=== PATIENT | male | born 1990 | race Caucasian/White ===

== ENCOUNTER 2023-01-02 22:01 | Inpatient (IN) | payer OTHER, SELFPAY ==
[2023-01-02 22:19] VITALS: BP 129/86; PULSE 105
--- NOTE | 2023-01-03 00:30 | PC.ADMIT ---
PT is a 32 year old male admitted to [facility] on CV from [place] ED due to SI with plan and intent to OD on medications due to recent Hepatitis C dx. PT has Bipolar 1 disorder and PTSD. PT has hx of multiple inpatient admissions and suicide attempts. Past medical history of HTN, anxiety, depression, seizures, and ADHD. PT currently on 15 minute safety checks and is resting in bed with eyes closed.
[2023-01-03 06:00] VITALS: BP 125/79; PULSE 76; RESP 14; TEMP 36.9; O2SAT 94
--- NOTE | 2023-01-03 12:49 | HO.PM.IMCN ---
History of Present Illness Data of Consult Service Date: 01/03/23 Requesting physician: Hossein Lucio Primary Care Provider: Unknown Physician HPI Reason for consult: medical H&P 32 year old male with history hypertension, recently diagnosed hepatitis C, hx seizures r/t to wellbutrin use, history alcohol abuse in remission, opioid dependence on suboxone with hx IVDA, and bipolar disorder admitted to psychiatry with consult placed to hospital medicine for medical H&P. The patient was recently diagnosed with hepatitis C, used to share needles for IVDU, and has not yet been treated for this. He denies ongoing use. No recent etoh use in 2 years per patient. Continues smoking 1PPD cigarettes with 10 pack year history. Has no other complaints. Review of Systems Review of Systems: General: No fevers, malaise, unintentional weight loss HEENT: No blurred vision, diplopia. No sore throat, nasal congestion, rhinorrhea, sinus pain, ear pain Cardiovascular: No chest pain, palpitations, or leg edema Respiratory: No shortness of breath, wheezing, cough GI: No abdominal pain, nausea, vomiting, diarrhea, constipation, melena, hematochezia : No dysuria, hematuria, increased urinary frequency, decreased urinary output MSK: No myalgia, back pain Neuro: No headaches, weakness, paresthesias Skin: No rashes or lesions PMFSH Medical History (Updated 01/03/23 @ 13:21 by SHARON Torres) Anxiety Bipolar disorder Cigarette smoker Hepatitis C History of alcohol abuse History of intravenous drug abuse History of seizure Opioid dependence on agonist therapy Social History Household Members: Other Household Members Other:: homeless Housing: Homeless Do you presently have visiting nurse or other home services: No Patient Tobacco Use Status: Current everyday Tobacco user Tobacco use type: Cigarette Use of substances other than those prescribed or required for medical reasons: Yes Substance Use Type: Amphetamines Substance Use Type Other:: suboxone Substance Use Frequency: Daily Last Used Substance: Unknown Currently Displaying Signs/Symptoms of Drug Intoxication Withdrawal: No Any prior treatment program specific to substance use: No Have you been hit, kicked, punched, or otherwise hurt by someone within the past year? If so, by whom?: No Spiritual Healthcare Practices: unknown Confucianism Healthcare Practices: unknown Cultural Healthcare Practices: unknown Advance Directives: No Advance Directives Information Provided: No Do you have thoughts of harming others: None Do you have a plan to hurt others: No Plan Recently lost weight without trying: Unsure How much weight loss: Unsure Meds Allergies Allergy/AdvReac Type Severity Reaction Status Date / Time No Known Allergies Allergy Verified 01/02/23 22:57 Active Medications: Current Medications Acetaminophen (Acetaminophen 325 Mg Tablet) 650 mg PO Q6H PRN PRN Reason: Headache/Pain Mild Scale (1-3) Al Hydroxide/Mg Hydroxide (Magnesium Hydrox/Alum Hydrox 30 Ml Oral.Susp) 30 ml PO Q6H PRN PRN Reason: Heartburn/Nausea Hydroxyzine HCl (Hydroxyzine Hcl 25 Mg Tablet) 25 mg PO Q6H PRN PRN Reason: Anxiety Magnesium Hydroxide (Milk Of Magnesia 30 Ml Oral.Susp) 30 ml PO DAILY PRN PRN Reason: Constipation Trazodone HCl (Trazodone Hcl 50 Mg Tablet) 50 mg PO BEDTIME MRX1 PRN PRN Reason: Insomnia Physical Exam Vital Signs and Narrative: Vital Signs: Last Vital Signs Temp 98.4 F 01/03/23 06:00 Pulse 76 01/03/23 06:00 Resp 14 01/03/23 06:00 BP 125/79 01/03/23 06:00 Pulse Ox 94 01/03/23 06:00 O2 Del Method Room Air 01/03/23 06:00 Constitutional - Awake and Alert, No apparent distress Eyes - PERRLA, EOMI Cardiovascular - S1S2, RRR, No edema Respiratory - Normal lung expansion, Normal respiratory effort, No respiratory distress, CTA bilaterally Gastrointestinal - NT / ND; +BS; No rebound or guarding Extremities - no calf tenderness bilaterally, no swelling Musculoskeletal - Normal inspection, normal ROM Skin - Warm/Dry Neurological - Alert & oriented x3, CN II-XII in tact, 5/5 strength BUE and BLE Psychological - depressed mood, disheveled appearing Assessment and Plan (1) Routine medical exam: Status: Acute Plan 32 year old male with history hypertension, recently diagnosed hepatitis C, hx seizures r/t to wellbutrin use, history alcohol abuse in remission, opioid dependence on suboxone with hx IVDA, and bipolar disorder admitted to psychiatry with consult placed to hospital medicine for medical H&P. #Bipolar disorder w/ SI -plan per psychiatry #Hepatitis C -recently diagnosed r/t IVDA -Needs to be set up with outpt GI for treatment- agreeable to treatment #Opioid dependence -denies recent illicit use -continue suboxone #HTN -continue lisinopril and clonidine -monitor BPs #Nicotine dependence -10 pack year history. Smokes 1ppd -Nicotine patch 21mg prn for NRT -Cessation counseling provided Thank you for allowing me to participate in this consult. Signing off at this time. Please do not hesitate to call for further questions. Time Spent With Patient Time: Total time managing care of this patient today ____ minutes.
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
[2023-01-03] MEDS: Gabapentin 300 MG CAPSULE PO ×2 (14:12→20:27)
[2023-01-03 20:25] VITALS: BP 147/92; PULSE 94; RESP 14; TEMP 37.2
[2023-01-03] MEDS: Prazosin HCL 1 MG CAPSULE 2 MG PO (20:25)
[2023-01-03] MEDS: Divalproex Sodium ER 500 MG TAB.ER.24H PO (20:25)
[2023-01-03] MEDS: Cyproheptadine HCl 4 MG TABLET 2 MG PO (20:26)
--- NOTE | 2023-01-04 | ECG_ITS ---
Test Reason : QTC PROLONGATION Blood Pressure : / mmHG Vent. Rate : 074 BPM Atrial Rate : 074 BPM P-R Int : 140 ms QRS Dur : 098 ms QT Int : 388 ms P-R-T Axes : 024 045 051 degrees QTc Int : 430 ms Normal sinus rhythm Normal ECG No previous ECGs available Referred By: Hossein Lucio Electronically Signed By:Julius Mora
[2023-01-04 08:24] VITALS: BP 155/90; PULSE 72; RESP 15; TEMP 36.2; O2SAT 96
[2023-01-04] MEDS: Venlafaxine HCl ER 150 MG CAP.ER.24H PO (08:33)
[2023-01-04] MEDS: ARIPiprazole 10 MG TABLET PO (08:33)
[2023-01-04] MEDS: Gabapentin 300 MG CAPSULE PO (08:33)
[2023-01-04 08:50] LABS: MANUAL DIFF FLAG NO
[2023-01-04 08:53] LABS: Basophils Percent Auto 0.5 % (0-2); Eosinophils Absolute Auto 0.2 X10*3/uL (0.0-0.4); Eosinophils Percent Auto 3.3 % (0-4); Hematocrit 49.7 % (42.0-52.0); Hemoglobin 17.5 g/dl (14.0-18.0); Imm Gran Abs Auto 0.02 X10*3/uL (0.00-0.03); Imm Gran Pct Auto 0.4 % (0.0-0.4); Lymphocytes Absolute Auto 2.8 X10*3/uL (1.2-4.9); Lymphocytes Percent Auto 49.2 % (20-40); Mean Corpuscular HGB Conc 35.2 g/dl (31.0-36.0); Mean Corpuscular Hemoglobin 32.1 pg (27.0-33.0); Mean Platelet Volume 11.3 fL (9.4-12.4); Monocytes Absolute Auto 0.5 X10*3/uL (0.1-1.2); Monocytes Percent Auto 7.9 % (2-11); Neutrophils Absolute Auto 2.2 x10*3/uL (2.0-8.3); Neutrophils Percent Auto 38.7 % (45-73); Platelet Count 194 X10*3/uL (160-400); Red Blood Count 5.46 X10*6/uL (4.60-5.80); Red Cell Distribution Width 13.1 % (11.0-16.0); White Blood Count 5.7 X10*3/uL (4.8-10.8)
--- NOTE | 2023-01-04 10:08 | P.PNPSI_ITS ---
Subjective Subjective Date of Service: 01/04/23 Reason For Visit: Bipolar I D/O Current etc Interim History: Met with patient; discussed in team; reviewed covering provider notes Patient denies any history of AVH; denies any history of manic episodes or behaviors. Rather patient endorses long history of depression anxiety and PTSD symptoms from trauma Patient reports sustained sobriety for the past 2 and half years Patient reports he has been homeless and thus is unable to maintain an outpatient provider; thus when decompensates or runs out of medications and up in the hospital. He says he was at [facility] the end of last year, then [facility] in October and then [facility] few weeks ago. Patient reports that his depression has never been well treated but at [facility] he got on Vyvanse and Ativan which he found helpful; however it was not continued at last hospitalization. Patient says that typically he will be doing well enough for few weeks and then something will happen such as an upsetting interactions that well immediately trigger a downward spiral and his mood and turn into of suicidal ideation. Regarding family history patient's mother has a history of bipolar disorder; father has been on lithium Reviewed medications and patient does not think Abilify is helpful. However he thinks Depakote has been helpful and would like to get back to 1250 mg. Invega recently started and he thinks that to might be helping but he is not sure. Patient would like to get back on gabapentin 800 mg t.i.d.. Discussed lithium which he is anxious about since his father was on in the past. Patient agrees to trying to utilize gabapentin and p.r.n. for anxiety instead of getting back on Ativan 0.5 which she was taking t.i.d.; he feels that if Ativan 0.5 mg once day p.r.n. is available for panic and that will be sufficient. He has also had Ambien in the past for sleep however will try to use Seroquel; production underwriter reviewed risks/side effects and he prefers Seroquel over trazodone since trazodone causes a sleep hangover. Mental Status Exam Mental Status Exam Narrative: Pt is alert and oriented; behavior is cooperative and calm; patient is not in distress; disheveled dressed in casual attire with unkempt hair and poor hygiene; mood is described as depressed and affect congruent, a little blunted; eye contact appropriate; Speech is normal rate, volume and prosody and not pressured; some psychomotor retardation present; thought process is organ ized and goal directed; Thought content is on feeling helpless; also on tx; otherwise pertinent to relevant topics and without any delusional content, paranoid ideations or grandiosity; intermittent SI; no HI. There is no evidence of perceptual disturbance and denies AVH. Patients insight and judgment are impaired Diagnostics Vital Signs (24Hr): Vital Signs - 24 hr 01/03/23 20:25 01/04/23 08:24 Temperature 99 F 97.2 F Pulse Rate 94 72 Respiratory Rate 14 15 Blood Pressure 147/92 H 155/90 H Pulse Oximetry 96 Oxygen Delivery Method Room Air Labs 01/04/23 08:03 Labs: Laboratory Results - last 48 hr 01/04/23 08:03 WBC 5.7 RBC 5.46 Hgb 17.5 Hct 49.7 MCV 91.0 MCH 32.1 MCHC 35.2 RDW 13.1 Plt Count 194 MPV 11.3 Immature Gran % (Auto) 0.4 Neut % (Auto) 38.7 L Lymph % (Auto) 49.2 H [place] % (Auto) 7.9 Eos % (Auto) 3.3 Baso % (Auto) 0.5 Lymph # (Auto) 2.8 [place] # (Auto) 0.5 Eos # (Auto) 0.2 Baso # (Auto) 0.0 Abs Immat Gran (auto) 0.02 Absolute Neuts (auto) 2.2 Absolute Nucleated RBC 0.000 Nucleated RBC % (auto) 0.0 Medications Medications Current Medications Acetaminophen (Acetaminophen 325 Mg Tablet) 650 mg PO Q6H PRN PRN Reason: Headache/Pain Mild Scale (1-3) Al Hydroxide/Mg Hydroxide (Magnesium Hydrox/Alum Hydrox 30 Ml Oral.Susp) 30 ml PO Q6H PRN PRN Reason: Heartburn/Nausea Aripiprazole (Aripiprazole 10 Mg Tablet) 10 mg PO DAILY [facility] Last Admin: 01/04/23 08:33 Dose: 10 mg Clonidine HCl (Clonidine Hcl 0.1 Mg Tablet) 0.1 mg PO TID PRN; Protocol PRN Reason: anxiety Cyproheptadine HCl (Cyproheptadine Hcl 4 Mg Tablet) 2 mg PO BEDTIME [facility] Last Admin: 01/03/23 20:26 Dose: 2 mg Divalproex Sodium (Divalproex Sodium Er 500 Mg Tab.Er.24h) 500 mg PO BEDTIME ORLY Last Admin: 01/03/23 20:25 Dose: 500 mg Gabapentin (Gabapentin 300 Mg Capsule) 300 mg PO TID ORLY Last Admin: 01/04/23 08:33 Dose: 300 mg Hydroxyzine HCl (Hydroxyzine Hcl 25 Mg Tablet) 25 mg PO Q6H PRN PRN Reason: Anxiety Magnesium Hydroxide (Milk Of Magnesia 30 Ml Oral.Susp) 30 ml PO DAILY PRN PRN Reason: Constipation Prazosin HCl (Prazosin Hcl 1 Mg Capsule) 2 mg PO BEDTIME ORLY; Protocol Last Admin: 01/03/23 20:25 Dose: 2 mg Trazodone HCl (Trazodone Hcl 50 Mg Tablet) 50 mg PO BEDTIME MRX1 PRN PRN Reason: Insomnia Venlafaxine HCl (Venlafaxine Hcl Er 150 Mg Cap.Er.24h) 150 mg PO DAILY [facility] Last Admin: 01/04/23 08:33 Dose: 150 mg Allergies Allergies Allergy/AdvReac Type Severity Reaction Status Date / Time No Known Allergies Allergy Verified 01/02/23 22:57 Assessment & Plan Assessment & Plan (1) Bipolar disorder: Status: Acute Code(s): F31.9 - Bipolar disorder, unspecified Assessment and Plan: 32 yo with long history of bipolar disorder presentinf for treatment due to SI with plan to overdose; feels safe on unti but very depressed. Plan Patient is a 32 yo male with history of depression, PTSD, alcohol use disorder in sustained remission, hep C, DMH involvement, who presents for SI and the face of psychosocial stressors including homelessness and being estranged from mom and brother. Patient denies any history of AVH or manic type episodes or behaviors; has not had consistent provider since he has been homeless and mostly gets medications from hospitalizations. Hospital course: 4/3 patient feels Depakote is helpful but not Abilify and agrees to discontinue; wants to remain on Effexor for now thinking it might be helpful. Also agrees to trying to use other PRNs instead of Ativan -reviewed labs from sending hospital: UDS negative; no LFTs done Plan: CV Q 15 minute checks Will order CMP, ammonia, Depakote level Increase Depakote ER to 1000 mg q.h.s.; patient used to be on 1250 mg -patient has history of hep C; production underwriter reviewed labs at sending institution and no LFTs done; will order LFTs and Depakote level before increasing further Discontinue Abilify; patient says not helpful and likely used as augmentation; review of past meds also have perphenazine listed which patient says may have been for augmentation as well but he never took it Continue Effexor ER; titrate back to recent home dose of 225 mg Increase gabapentin to 600 mg t.i.d.; patient was getting 800 t.i.d. which he says was for migraines and prescribed by pain management doctor in [place] Will start Adderall ER 10 mg; no Vyvanse available Start Ativan 0.5 mg daily p.r.n. for panic Start Seroquel 50 mg q.h.s. for insomnia (tried to avoid Ambien; trazodone causes sleep hang over) Increase prazosin to 4 mg q.h.s.; was taking 6 mg Will consider restarting lisinopril for blood pressure Continue cyproheptadine however not sure what this is being used for Patient educated on: diagnosis, medication risk/benefits, substance abuse and therapeutic strategies Informed Consent: understands Reason for contiued inpatient stay Substantial Risk for: rapid decompensation Time Spent With Patient Time: Total time managing care of this patient today ____ minutes.
[2023-01-04] MEDS: Buprenorphine/Naloxone 8/2 mg FILM 1 FILM SUBLINGUAL ×2 (14:53→21:15)
[2023-01-04] MEDS: Gabapentin 300 MG CAPSULE 600 MG PO ×2 (14:54→21:05)
[2023-01-04 15:31] LABS: Alanine Aminotransferase 248 U/L (0-40); Alkaline Phosphatase 76 U/L (39-117); Anion Gap 16 (12-20); Aspartate Amino Transferase 275 U/L (5-37); Bilirubin Total 0.9 mg/dL (0.0-1.0); Blood Urea Nitrogen 17 mg/dL (9-16); Calcium 9.5 mg/dL (8.4-10.2); Carbon Dioxide 26 mmol/L (22-29); Chloride 102 mmol/L (96-108); Estimated Glomerular Filt Rate > 60; Glucose Random 120 mg/dL (60-115); Potassium 4.7 mmol/L (3.3-5.1); Sodium 139 mmol/L (135-145); Total Protein 7.3 g/dL (6.5-8.0)
[2023-01-04 15:35] LABS: Ammonia 69 umol/L (13-55)
[2023-01-04 16:37] LABS: Valproate 52.4 mcg/mL (50.0-100.0)
[2023-01-04 18:00] VITALS: BP 159/86; PULSE 68; TEMP 36.1; O2SAT 98
[2023-01-04] MEDS: LORazepam 0.5 MG TABLET PO (19:15)
[2023-01-04] MEDS: Cyproheptadine HCl 4 MG TABLET 2 MG PO (21:03)
[2023-01-04] MEDS: Divalproex Sodium ER 500 MG TAB.ER.24H 1000 MG PO (21:05)
[2023-01-04] MEDS: Prazosin HCL 1 MG CAPSULE 4 MG PO (21:06)
[2023-01-05] MEDS: Gabapentin 300 MG CAPSULE 600 MG PO ×3 (08:36→20:00)
[2023-01-05] MEDS: Dextroamphetamine/Amphetamine XR 10 MG CAP.ER.24H PO (08:36)
[2023-01-05] MEDS: Venlafaxine HCl ER 150 MG CAP.ER.24H PO (08:36)
[2023-01-05] MEDS: Buprenorphine/Naloxone 8/2 mg FILM 1 FILM SUBLINGUAL ×2 (08:37→17:22)
[2023-01-05] MEDS: Nicotine 21 MG PATCH.TD24 TRANSDERMA (08:37)
[2023-01-05 09:03] VITALS: BP 146/81; PULSE 85; RESP 14; TEMP 36.1
[2023-01-05] MEDS: Nicotine Polacrilex 2 MG GUM 4 MG BUCCAL ×2 (13:51→16:10)
--- NOTE | 2023-01-05 14:16 | HO.PSYCHPN ---
Subjective Subjective Date of Service: 01/05/23 Reason For Visit: Bipolar I D/O Current etc Interim History: Met with patient; discussed with team; reviewed labs Patient reports he still feeling depressed with passive SI however he says he is feeling more helpful about treatment getting better. Discussed labs and patient understands elevated liver enzymes and problems with Depakote and agrees to discontinue. Discussed medications and patient says for now he wants to stay off mood stabilizers to see how he does without on just Effexor. Patient said that he was able to sleep last night on his own without trazodone; discussed Cyproheptidine and patient thinks it it may be for help with migraines. Discussed history and patient has limited substance abuse history, saying he has experimented in the past but has never really abused anything consistently; he says that of anything he abused subxone. Patient completed 2 years of college. Discussed behavioral activation and patient agrees to work on attending to ADLs Reviewed medication trials: Lamictal: No affect Wellbutrin: Seizures Mental Status Exam Mental Status Exam Narrative: Pt is alert and oriented; behavior is cooperative and calm; patient is not in distress; disheveled dressed in casual attire with unkempt hair and poor hygiene; mood is described as depressed and affect congruent, a little blunted; eye contact appropriate; Speech is normal rate, volume and prosody and not pressured; some psychomotor retardation present; thought process is organized and goal directed; Thought content is on feeling helpless; also on tx; otherwise pertinent to relevant topics and without any delusional content, paranoid ideations or grandiosity; intermittent SI; no HI. There is no evidence of perceptual disturbance and denies AVH. Patients insight and judgment are impaired Diagnostics Vital Signs (24Hr): Vital Signs - 24 hr 01/04/23 18:00 01/05/23 09:03 Temperature 97 F 97 F Pulse Rate 68 85 Respiratory Rate 14 Blood Pressure 159/86 H 146/81 H Pulse Oximetry 98 Oxygen Delivery Method Room Air Labs 01/04/23 08:03 01/04/23 14:51 Labs: Laboratory Results - last 48 hr 01/04/23 01/04/23 01/04/23 08:03 14:51 14:51 WBC 5.7 RBC 5.46 Hgb 17.5 Hct 49.7 MCV 91.0 MCH 32.1 MCHC 35.2 RDW 13.1 Plt Count 194 MPV 11.3 Immature Gran % (Auto) 0.4 Neut % (Auto) 38.7 L Lymph % (Auto) 49.2 H [place] % (Auto) 7.9 Eos % (Auto) 3.3 Baso % (Auto) 0.5 Lymph # (Auto) 2.8 [place] # (Auto) 0.5 Eos # (Auto) 0.2 Baso # (Auto) 0.0 Abs Immat Gran (auto) 0.02 Absolute Neuts (auto) 2.2 Absolute Nucleated RBC 0.000 Nucleated RBC % (auto) 0.0 Sodium 139 Potassium 4.7 Chloride 102 Carbon Dioxide 26 Anion Gap 16 BUN 17 H Creatinine 0.81 Estim Creat Clear Calc TNP Estimated GFR > 60 Random Glucose 120 H Calcium 9.5 Total Bilirubin 0.9 AST 275 H ALT 248 H Alkaline Phosphatase 76 Ammonia 69 H Total Protein 7.3 Albumin 4.0 Valproic Acid 01/04/23 14:51 WBC RBC Hgb Hct MCV MCH MCHC RDW Plt Count MPV Immature Gran % (Auto) Neut % (Auto) Lymph % (Auto) [place] % (Auto) Eos % (Auto) Baso % (Auto) Lymph # (Auto) [place] # (Auto) Eos # (Auto) Baso # (Auto) Abs Immat Gran (auto) Absolute Neuts (auto) Absolute Nucleated RBC Nucleated RBC % (auto) Sodium Potassium Chloride Carbon Dioxide Anion Gap BUN Creatinine Estim Creat Clear Calc Estimated GFR Random Glucose Calcium Total Bilirubin AST ALT Alkaline Phosphatase Ammonia Total Protein Albumin Valproic Acid 52.4 Medications Medications Current Medications Acetaminophen (Acetaminophen 325 Mg Tablet) 650 mg PO Q6H PRN PRN Reason: Headache/Pain Mild Scale (1-3) Al Hydroxide/Mg Hydroxide (Magnesium Hydrox/Alum Hydrox 30 Ml Oral.Susp) 30 ml PO Q6H PRN PRN Reason: Heartburn/Nausea Amphetamine/Dextroamphetamine (Dextroamphetamine/Amphetamine Xr 10 Mg Cap.Er.24h) 10 mg PO DAILY [facility] Last Admin: 01/05/23 08:36 Dose: 10 mg Buprenorphine/Naloxone (Buprenorphine/Naloxone 8/2 Mg Film) 1 film SUBLINGUAL BID@0900,1700 [facility] Last Admin: 01/05/23 08:37 Dose: 1 film Clonidine HCl (Clonidine Hcl 0.1 Mg Tablet) 0.1 mg PO TID PRN; Protocol PRN Reason: anxiety Cyproheptadine HCl (Cyproheptadine Hcl 4 Mg Tablet) 2 mg PO BEDTIME [facility] Last Admin: 01/04/23 21:03 Dose: 2 mg Divalproex Sodium (Divalproex Sodium Er 500 Mg Tab.Er.24h) 1,000 mg PO BEDTIME [facility] Last Admin: 01/04/23 21:05 Dose: 1,000 mg Gabapentin (Gabapentin 300 Mg Capsule) 600 mg PO TID [facility] Last Admin: 01/05/23 08:36 Dose: 600 mg Hydroxyzine HCl (Hydroxyzine Hcl 25 Mg Tablet) 25 mg PO Q6H PRN PRN Reason: Anxiety Lorazepam (Lorazepam 0.5 Mg Tablet) 0.5 mg PO DAILY PRN PRN Reason: severe anxiety/panic Last Admin: 01/04/23 19:15 Dose: 0.5 mg Magnesium Hydroxide (Milk Of Magnesia 30 Ml Oral.Susp) 30 ml PO DAILY PRN PRN Reason: Constipation Nicotine (Nicotine 21 Mg Patch.Td24) 21 mg TRANSDERMA DAILY [facility] Last Admin: 01/05/23 08:37 Dose: 21 mg Nicotine Polacrilex (Nicotine Polacrilex 2 Mg Gum) 4 mg BUCCAL Q2H PRN PRN Reason: Nicotine Cravings Last Admin: 01/05/23 13:51 Dose: 4 mg Prazosin HCl (Prazosin Hcl 1 Mg Capsule) 4 mg PO BEDTIME [facility]; Protocol Last Admin: 01/04/23 21:06 Dose: 4 mg Trazodone HCl (Trazodone Hcl 25 Mg Halftab) 25 mg PO BEDTIME MRX1 PRN PRN Reason: Insomnia Venlafaxine HCl (Venlafaxine Hcl Er 150 Mg Cap.Er.24h) 150 mg PO DAILY [facility] Last Admin: 01/05/23 08:36 Dose: 150 mg Allergies Allergies Allergy/AdvReac Type Severity Reaction Status Date / Time No Known Allergies Allergy Verified 01/02/23 22:57 Assessment & Plan Assessment & Plan (1) Bipolar disorder: Status: Acute Code(s): F31.9 - Bipolar disorder, unspecified Assessment and Plan: 32 yo with long history of bipolar disorder presentinf for treatment due to SI with plan to overdose; feels safe on unti but very depressed. Plan Patient is a 32 yo male with history of depression, PTSD, alcohol use disorder in sustained remission, hep C, DMH involvement, who presents for SI and the face of psychosocial stressors including homelessness and being estranged from mom and brother. Patient denies any history of AVH or manic type episodes or behaviors; has not had consistent provider since he has been homeless and mostly gets medications from hospitalizations. Hospital course: 01/04 patient feels Depakote is helpful but not Abilify and agrees to discontinue; wants to remain on Effexor for now thinking it might be helpful. Also agrees to trying to use other PRNs instead of Ativan -reviewed labs from sending hospital: UDS negative; no LFTs done 01/05 remains depressed and anxious; will stop Depakote as LFTs and ammonia elevated even when on only 500 mg; patient will try Effexor alone -repeat labs Plan: CV Q 15 minute checks Repeat LFTs Discontinue Depakote: Causing increase LFTs ; patient has history of hep C Discontinued Abilify; patient says not helpful and likely used as augmentation; review of past meds also have perphenazine listed which patient says may have been for augmentation as well but he never took it Increased to Effexor ER 225 mg Continue gabapentin to 600 mg t.i.d.; patient was getting 800 t.i.d. which he says was for migraines and prescribed by pain management doctor in [place] Increase to Adderall ER 20 mg; no Vyvanse available Start Ativan 0.5 mg daily p.r.n. for panic Start Seroquel 50 mg q.h.s. p.r.n. for insomnia (tried to avoid Ambien) Added trazodone 25 mg p.r.n. since patient wonders if lower dose might not cause sleep hanging over Continue prazosin to 4 mg q.h.s.; was taking 6 mg Will consider restarting lisinopril for blood pressure Continue cyproheptadine likely for migraine Patient educated on: diagnosis, medication risk/benefits, substance abuse and therapeutic strategies Informed Consent: understands Reason for contiued inpatient stay Substantial Risk for: harm to self and rapid decompensation Time Spent With Patient Time: Total time managing care of this patient today ____ minutes.
[2023-01-05] MEDS: cloNIDine HCL 0.1 MG TABLET PO ×2 (16:10→20:03)
[2023-01-05 18:00] VITALS: BP 134/80; PULSE 83; TEMP 35.9; O2SAT 94
[2023-01-05] MEDS: Cyproheptadine HCl 4 MG TABLET 2 MG PO (20:00)
[2023-01-05] MEDS: Prazosin HCL 1 MG CAPSULE 4 MG PO (20:00)
[2023-01-05] MEDS: traZODone HCL 25 MG HALFTAB PO (20:02)
[2023-01-05] MEDS: LORazepam 0.5 MG TABLET PO (20:02)
--- NOTE | 2023-01-06 07:42 | HO.PSYCHPN ---
Subjective Subjective Date of Service: 01/06/23 Reason For Visit: Bipolar I D/O Current etc Interim History: Met with patient; discussed with team Patient reports that he has a little better though depression remains, SI no longer prominent. Patient feels that medication regimen is adequate. Again discussed focusing on ADLs and behavioral activation; patient says he fully understands the concept and today he will in fact shower and go to a group. Patient slept again last night without need for p.r.n. Mental Status Exam Mental Status Exam Narrative: Pt is alert and oriented; behavior is cooperative and calm; patient is not in distress; disheveled dressed in casual attire with unkempt hair and poor hygiene; mood is described as okay... Little better and affect congruent, less blunted, more expressive; eye contact appropriate; Speech is normal rate, volume and prosody and not pressured; some psychomotor retardation present; thought process is organized and goal directed; Thought content is on treatment and feeling a little more hopeful; otherwise pertinent to relevant topics and without any delusional content, paranoid ideations or grandiosity; intermittent SI but less; no HI. There is no evidence of perceptual disturbance and denies AVH. Patients insight and judgment are impaired but improving Diagnostics Vital Signs (24Hr): Vital Signs - 24 hr 01/05/23 09:03 01/05/23 18:00 Temperature 97 F 96.7 F L Pulse Rate 85 83 Respiratory Rate 14 Blood Pressure 146/81 H 134/80 Pulse Oximetry 94 Oxygen Delivery Method Room Air Labs 01/04/23 08:03 01/04/23 14:51 Labs: Laboratory Results - last 48 hr 01/04/23 01/04/23 01/04/23 08:03 14:51 14:51 WBC 5.7 RBC 5.46 Hgb 17.5 Hct 49.7 MCV 91.0 MCH 32.1 MCHC 35.2 RDW 13.1 Plt Count 194 MPV 11.3 Immature Gran % (Auto) 0.4 Neut % (Auto) 38.7 L Lymph % (Auto) 49.2 H [place] % (Auto) 7.9 Eos % (Auto) 3.3 Baso % (Auto) 0.5 Lymph # (Auto) 2.8 [place] # (Auto) 0.5 Eos # (Auto) 0.2 Baso # (Auto) 0.0 Abs Immat Gran (auto) 0.02 Absolute Neuts (auto) 2.2 Absolute Nucleated RBC 0.000 Nucleated RBC % (auto) 0.0 Sodium 139 Potassium 4.7 Chloride 102 Carbon Dioxide 26 Anion Gap 16 BUN 17 H Creatinine 0.81 Estim Creat Clear Calc TNP Estimated GFR > 60 Random Glucose 120 H Calcium 9.5 Total Bilirubin 0.9 AST 275 H ALT 248 H Alkaline Phosphatase 76 Ammonia 69 H Total Protein 7.3 Albumin 4.0 Valproic Acid 01/04/23 14:51 WBC RBC Hgb Hct MCV MCH MCHC RDW Plt Count MPV Immature Gran % (Auto) Neut % (Auto) Lymph % (Auto) [place] % (Auto) Eos % (Auto) Baso % (Auto) Lymph # (Auto) [place] # (Auto) Eos # (Auto) Baso # (Auto) Abs Immat Gran (auto) Absolute Neuts (auto) Absolute Nucleated RBC Nucleated RBC % (auto) Sodium Potassium Chloride Carbon Dioxide Anion Gap BUN Creatinine Estim Creat Clear Calc Estimated GFR Random Glucose Calcium Total Bilirubin AST ALT Alkaline Phosphatase Ammonia Total Protein Albumin Valproic Acid 52.4 Medications Medications Current Medications Acetaminophen (Acetaminophen 325 Mg Tablet) 650 mg PO Q6H PRN PRN Reason: Headache/Pain Mild Scale (1-3) Al Hydroxide/Mg Hydroxide (Magnesium Hydrox/Alum Hydrox 30 Ml Oral.Susp) 30 ml PO Q6H PRN PRN Reason: Heartburn/Nausea Amphetamine/Dextroamphetamine (Dextroamphetamine/Amphetamine Xr 10 Mg Cap.Er.24h) 20 mg PO DAILY [facility] Buprenorphine/Naloxone (Buprenorphine/Naloxone 8/2 Mg Film) 1 film SUBLINGUAL BID@0900,1700 [facility] Last Admin: 01/05/23 17:22 Dose: 1 film Clonidine HCl (Clonidine Hcl 0.1 Mg Tablet) 0.1 mg PO TID PRN; Protocol PRN Reason: anxiety Last Admin: 01/05/23 20:03 Dose: 0.1 mg Cyproheptadine HCl (Cyproheptadine Hcl 4 Mg Tablet) 2 mg PO BEDTIME [facility] Last Admin: 01/05/23 20:00 Dose: 2 mg Gabapentin (Gabapentin 300 Mg Capsule) 600 mg PO TID [facility] Last Admin: 01/05/23 20:00 Dose: 600 mg Hydroxyzine HCl (Hydroxyzine Hcl 25 Mg Tablet) 25 mg PO Q6H PRN PRN Reason: Anxiety Lorazepam (Lorazepam 0.5 Mg Tablet) 0.5 mg PO DAILY PRN PRN Reason: severe anxiety/panic Last Admin: 01/05/23 20:02 Dose: 0.5 mg Magnesium Hydroxide (Milk Of Magnesia 30 Ml Oral.Susp) 30 ml PO DAILY PRN PRN Reason: Constipation Nicotine (Nicotine 21 Mg Patch.Td24) 21 mg TRANSDERMA DAILY [facility] Last Admin: 01/05/23 08:37 Dose: 21 mg Nicotine Polacrilex (Nicotine Polacrilex 2 Mg Gum) 4 mg BUCCAL Q2H PRN PRN Reason: Nicotine Cravings Last Admin: 01/05/23 16:10 Dose: 4 mg Prazosin HCl (Prazosin Hcl 1 Mg Capsule) 4 mg PO BEDTIME [facility]; Protocol Last Admin: 01/05/23 20:00 Dose: 4 mg Trazodone HCl (Trazodone Hcl 25 Mg Halftab) 25 mg PO BEDTIME [facility]X1 PRN PRN Reason: Insomnia Last Admin: 01/05/23 20:02 Dose: 25 mg Venlafaxine HCl (Venlafaxine Hcl Er 75 Mg Cap.Er.24h) 225 mg PO DAILY [facility] Allergies Allergies Allergy/AdvReac Type Severity Reaction Status Date / Time bupropion [From Wellbutrin] AdvReac Seizure Verified 01/05/23 16:47 Assessment & Plan Assessment & Plan (1) Bipolar disorder: Status: Acute Code(s): F31.9 - Bipolar disorder, unspecified Assessment and Plan: 32 yo with long history of bipolar disorder presentinf for treatment due to SI with plan to overdose; feels safe on unti but very depressed. Plan Patient is a 32 yo male with history of depression, PTSD, alcohol use disorder in sustained remission, hep C, DMH involvement, who presents for SI and the face of psychosocial stressors including homelessness and being estranged from mom and brother. Patient denies any history of AVH or manic type episodes or behaviors; has not had consistent provider since he has been homeless and mostly gets medications from hospitalizations. Hospital course: 4/3 patient feels Depakote is helpful but not Abilify and agrees to discontinue; wants to remain on Effexor for now thinking it might be helpful. Also agrees to trying to use other PRNs instead of Ativan -reviewed labs from sending hospital: UDS negative; no LFTs done 01/05 remains depressed and anxious; will stop Depakote as LFTs and ammonia elevated even when on only 500 mg; patient will try Effexor alone 4/5 some mild improvement with some decrease in depression, less SI; still not attending to ADLs but agrees with plan for behavioral activation and says will shower and attend group today. Continue treatment plan Will repeat LFTs/ammonia for tomorrow morning Plan: CV Q 15 minute checks Repeat LFTs Discontinue Depakote: Causing increase LFTs ; patient has history of hep C Discontinued Abilify; patient says not helpful and likely used as augmentation; review of past meds also have perphenazine listed which patient says may have been for augmentation as well but he never took it Increased to Effexor ER 225 mg Continue gabapentin to 600 mg t.i.d.; patient was getting 800 t.i.d. which he says was for migraines and prescribed by pain management doctor in [place] Increase to Adderall ER 20 mg; no Vyvanse available Start Ativan 0.5 mg daily p.r.n. for panic Start Seroquel 50 mg q.h.s. p.r.n. for insomnia (tried to avoid Ambien) Added trazodone 25 mg p.r.n. since patient wonders if lower dose might not cause sleep hanging over Continue prazosin to 4 mg q.h.s.; was taking 6 mg Will consider restarting lisinopril for blood pressure Continue cyproheptadine likely for migraine Patient educated on: diagnosis, medication risk/benefits, therapeutic strategies and medical condition Informed Consent: understands Reason for contiued inpatient stay Substantial Risk for: rapid decompensation Time Spent With Patient Time: Total time managing care of this patient today ____ minutes.
[2023-01-06] MEDS: Dextroamphetamine/Amphetamine XR 10 MG CAP.ER.24H 20 MG PO (08:33)
[2023-01-06] MEDS: Gabapentin 300 MG CAPSULE 600 MG PO ×3 (08:33→21:32)
[2023-01-06] MEDS: Venlafaxine HCl ER 75 MG CAP.ER.24H 225 MG PO (08:34)
[2023-01-06] MEDS: Buprenorphine/Naloxone 8/2 mg FILM 1 FILM SUBLINGUAL ×2 (08:34→16:17)
[2023-01-06 08:39] VITALS: BP 125/82; PULSE 73; RESP 16; TEMP 36.4; O2SAT 94
[2023-01-06] MEDS: Nicotine 21 MG PATCH.TD24 TRANSDERMA (10:19)
[2023-01-06] MEDS: Nicotine Polacrilex 2 MG GUM 4 MG BUCCAL ×3 (13:10→17:02)
[2023-01-06 16:15] VITALS: BP 188/114; PULSE 105; TEMP 36.2; O2SAT 96
[2023-01-06] MEDS: cloNIDine HCL 0.1 MG TABLET PO (16:18)
[2023-01-06] MEDS: LORazepam 0.5 MG TABLET PO (17:01)
--- NOTE | 2023-01-06 17:51 | PC.NURSE ---
Patient's BP 188/114 with pulse of 105 at 1615, Dr. Lucio aware. Order received for Clonidine 0.1 mg p.o. scheduled BID, in addition to the prn Clonidine. Lisinopril 5 mg p.o. daily was also ordered and will start tomorrow, 01/07/23. Will continue to monitor BP.
[2023-01-06 18:01] VITALS: BP 160/93; PULSE 112
[2023-01-06 20:12] VITALS: BP 140/94; PULSE 98
--- NOTE | 2023-01-06 20:57 | PC.NURSE ---
Patient said he would like to have Clonidine at 2.0 po at HS, said he normally takes 2.1 mg at HS at home. Dr. Alex Lopez notified and new orders were received. Patient will now have Clonidine 0.2 mg po at HS, Clonidine 0.1 mg po daily and Clonidine 0.1 mg po Q2 hours while awake as a prn for SBP >150
[2023-01-06] MEDS: cloNIDine HCL 0.2 MG TABLET PO (21:27)
[2023-01-06] MEDS: Prazosin HCL 1 MG CAPSULE 4 MG PO (21:28)
[2023-01-06] MEDS: traZODone HCL 25 MG HALFTAB PO (21:28)
[2023-01-06] MEDS: Cyproheptadine HCl 4 MG TABLET 2 MG PO (21:28)
--- NOTE | 2023-01-06 22:15 | PC.NURSE ---
Patient resting in NAD. BP 121/58 with HR 75 AT 2210.
[2023-01-07 08:31] VITALS: BP 100/59; PULSE 62; RESP 16; TEMP 36.2; O2SAT 94
[2023-01-07 08:44] LABS: Ammonia 41 umol/L (13-55)
[2023-01-07] MEDS: Nicotine 21 MG PATCH.TD24 TRANSDERMA (09:04)
[2023-01-07] MEDS: Gabapentin 300 MG CAPSULE 600 MG PO (09:04)
[2023-01-07] MEDS: Dextroamphetamine/Amphetamine XR 10 MG CAP.ER.24H 20 MG PO (09:04)
[2023-01-07] MEDS: Venlafaxine HCl ER 75 MG CAP.ER.24H 225 MG PO (09:04)
[2023-01-07] MEDS: Buprenorphine/Naloxone 8/2 mg FILM 1 FILM SUBLINGUAL (09:04)
--- NOTE | 2023-01-07 09:06 | P.PNPSI_ITS ---
Subjective Subjective Date of Service: 01/07/23 Reason For Visit: Bipolar I D/O Current etc Interim History: met with patient; discussed with team; discussed again with EMULSION OPERATOR regarding med m anagement pt reports he's still depressed, still anxious but overall better, more hopeful than when he came in. Pt said he showered yesterday and today and went to a group. He said he had to force himself throughout and would have liked to go back to bed, but agreed that pushing himself towards self-care was helpful to his mood and outlook. Discussed meds. Remains quite anxious; in effort to not need ativan as much, he agrees to try Trileptal for anxiety to augment Effexor. Pt asks for gabapentin to be increased back to home dose to which ad copy writer agrees. Explored options for sleep. Considered Doxepin but benadryl/antihistamine is activating for him. Given failed attempts at trazodone and seroquel, ad copy writer agrees to restore ambien. Pt wants to get off suboxone saying been sober for years and is without cravings; agrees to begin slow taper; does not want cyproheptadine. discussed family relationships with mom; altercation w/ brother; estranged father; discussed hx of therapy. Mental Status Exam Mental Status Exam Narrative: Pt is alert and oriented; behavior is cooperative and calm; patient is not in distress; casually dressed in clean cloths; good hygiene; mood is described as okay... Little better and affect congruent, more expressive; eye contact appropriate; Speech is normal rate, volume and prosody and not pressured; some psychomotor retardation present; thought process is organized and goal directed; Thought content is on treatment and feeling a little more hopeful; otherwise pertinent to relevant topics and without any delusional content, paranoid id eations or grandiosity; no SI; no HI. There is no evidence of perceptual disturbance and denies AVH. Patients insight and judgment are impaired but improving Diagnostics Vital Signs (24Hr): Vital Signs - 24 hr 01/06/23 16:15 01/06/23 18:01 01/06/23 20:12 Temperature 97.2 F Pulse Rate 105 H 112 H 98 Respiratory Rate Blood Pressure 188/114 H 160/93 H 140/94 H Pulse Oximetry 96 Oxygen Delivery Method Room Air 01/07/23 08:31 Temperature 97.2 F Pulse Rate 62 Respiratory Rate 16 Blood Pressure 100/59 L Pulse Oximetry 94 Oxygen Delivery Method Room Air Labs 01/04/23 08:03 01/04/23 14:51 Labs: Laboratory Results - last 48 hr 01/07/23 08:22 Ammonia 41 Medications Medications Current Medications Acetaminophen (Acetaminophen 325 Mg Tablet) 650 mg PO Q6H PRN PRN Reason: Headache/Pain Mild Scale (1-3) Al Hydroxide/Mg Hydroxide (Magnesium Hydrox/Alum Hydrox 30 Ml Oral.Susp) 30 ml PO Q6H PRN PRN Reason: Heartburn/Nausea Amphetamine/Dextroamphetamine (Dextroamphetamine/Amphetamine Xr 10 Mg Cap.Er.24h) 20 mg PO DAILY [facility] Last Admin: 01/06/23 08:33 Dose: 20 mg Buprenorphine/Naloxone (Buprenorphine/Naloxone 8/2 Mg Film) 1 film SUBLINGUAL BID@0900,1700 [facility] Last Admin: 01/06/23 16:17 Dose: 1 film Clonidine HCl (Clonidine Hcl 0.2 Mg Tablet) 0.2 mg PO BEDTIME [facility]; Protocol Last Admin: 01/06/23 21:27 Dose: 0.2 mg Clonidine HCl (Clonidine Hcl 0.1 Mg Tablet) 0.1 mg PO Q2H PRN; Protocol PRN Reason: SBP >150 Clonidine HCl (Clonidine Hcl 0.1 Mg Tablet) 0.1 mg PO DAILY [facility]; Protocol Cyproheptadine HCl (Cyproheptadine Hcl 4 Mg Tablet) 2 mg PO BEDTIME [facility] Last Admin: 01/06/23 21:28 Dose: 2 mg Gabapentin (Gabapentin 300 Mg Capsule) 600 mg PO TID [facility] Last Admin: 01/06/23 21:32 Dose: 600 mg Hydroxyzine HCl (Hydroxyzine Hcl 25 Mg Tablet) 25 mg PO Q6H PRN PRN Reason: Anxiety Lisinopril (Lisinopril 5 Mg Tablet) 5 mg PO DAILY [facility]; Protocol Lorazepam (Lorazepam 0.5 Mg Tablet) 0.5 mg PO DAILY PRN PRN Reason: severe anxiety/panic Last Admin: 01/06/23 17:01 Dose: 0.5 mg Magnesium Hydroxide (Milk Of Magnesia 30 Ml Oral.Susp) 30 ml PO DAILY PRN PRN Reason: Constipation Nicotine (Nicotine 21 Mg Patch.Td24) 21 mg TRANSDERMA DAILY [facility] Last Admin: 01/06/23 10:19 Dose: 21 mg Nicotine Polacrilex (Nicotine Polacrilex 2 Mg Gum) 4 mg BUCCAL Q2H PRN PRN Reason: Nicotine Cravings Last Admin: 01/06/23 17:02 Dose: 4 mg Prazosin HCl (Prazosin Hcl 1 Mg Capsule) 4 mg PO BEDTIME [facility]; Protocol Last Admin: 01/06/23 21:28 Dose: 4 mg Trazodone HCl (Trazodone Hcl 25 Mg Halftab) 25 mg PO BEDTIME MRX1 PRN PRN Reason: Insomnia Last Admin: 01/06/23 21:28 Dose: 25 mg Venlafaxine HCl (Venlafaxine Hcl Er 75 Mg Cap.Er.24h) 225 mg PO DAILY [facility] Last Admin: 01/06/23 08:34 Dose: 225 mg Allergies Allergies Allergy/AdvReac Type Severity Reaction Status Date / Time bupropion [From Wellbutrin] AdvReac Seizure Verified 01/05/23 16:47 Assessment & Plan Assessment & Plan (1) MDD (major depressive disorder), recurrent severe, without psychosis: Status: Acute Code(s): F33.2 - Major depressive disorder, recurrent severe without psychotic features (2) PTSD (post-traumatic stress disorder): Status: Acute Code(s): F43.10 - Post-traumatic stress disorder, unspecified (3) Hepatitis C: Status: Acute Code(s): B19.20 - Unspecified viral hepatitis C without hepatic coma (4) Opioid dependence on agonist therapy: Status: Acute Code(s): F11.20 - Opioid dependence, uncomplicated Plan Patient is a 32 yo male with history of depression, PTSD, alcohol use disorder in sustained remission, hep C, DMH involvement, who presents for SI and the face of psychosocial stressors including homelessness and being estranged from mom and brother. Patient denies any history of AVH or manic type episodes or behaviors; has not had consistent provider since he has been homeless and mostly gets medications from hospitalizations. Hospital course: / patient feels Depakote is helpful but not Abilify and agrees to discontinue; wants to remain on Effexor for now thinking it might be helpful. Also agrees to trying to use other PRNs instead of Ativan -reviewed labs from sending hospital: UDS negative; no LFTs done 01/05 remains depressed and anxious; will stop Depakote as LFTs and ammonia elevated even when on only 500 mg; patient will try Effexor alone / some mild improvement with some decrease in depression, less SI; still not attending to ADLs but agrees with plan for behavioral activation and says will shower and attend group today. Continue treatment plan repeat LFTs/ammonia shows trending toward normal 01/07 mood improved some; pushing self to engage. given anxiety and wish for more ativan pt agrees to try Trileptal to see if it can help shrink anxiety. -wants to cut down on meds, including controlled substances; asking to taper and dc suboxone; agrees to start w/ slow taper and see how it goes. Plan: CV Q 15 minute checks Repeat LFTs Discontinue Depakote: Causing increase LFTs ; patient has history of hep C Discontinued Abilify; patient says not helpful and likely used as augmentation; review of past meds also have perphenazine listed which patient says may have been for augmentation as well but he never took it Continue Suboxone 8/2mg daily, but... LOWER suboxone to 6/1.5mg (pt wants to taper off and dc; understands will start process but unlikely to complete it during this admission) START TRilptal 150mg daily for anxiety Added Ambien 5mg started Propranol 10mg BID; pt reports been on 60mg BID before which was more helpful than clonidine Continue Effexor ER 225 mg Increase to gabapentin to 800 mg t.i.d.; patient was getting 800 t.i.d. which he says was for migraines and prescribed by pain management doctor in [place] Increase to Adderall ER 30 mg; no Vyvanse available Ativan 0.5 mg daily p.r.n. for panic Start Seroquel 50 mg q.h.s. p.r.n. for insomnia (tried to avoid Ambien) DC trazodone; not working well; Continue prazosin to 4 mg q.h.s.; was taking 6 mg Restarted lisinopril for blood pressure; DC cyproheptadine: pt says not helping and wants to reduce number of meds taking reduced clonidine prn to 0.1mg for hypoptension Patient educated on: diagnosis, medication risk/benefits, substance abuse and therapeutic strategies Informed Consent: understands Reason for contiued inpatient stay Substantial Risk for: rapid decompensation Time Spent With Patient Time: Total time managing care of this patient today ____ minutes.
[2023-01-07 09:10] LABS: Alanine Aminotransferase 226 U/L (0-40); Albumin Level 3.8 g/dL (3.5-5.0); Alkaline Phosphatase 65 U/L (39-117); Aspartate Amino Transferase 191 U/L (5-37); Bilirubin Direct 0.3 mg/dL (0.0-0.5); Bilirubin Total 0.7 mg/dL (0.0-1.0); Total Protein 6.7 g/dL (6.5-8.0)
[2023-01-07] MEDS: Nicotine Polacrilex 2 MG GUM 4 MG BUCCAL ×3 (10:28→18:03)
[2023-01-07 10:30] VITALS: BP 127/83; PULSE 92
[2023-01-07 12:40] VITALS: BP 146/97; PULSE 106
[2023-01-07] MEDS: OXcarbazepine 150 MG TABLET PO (12:41)
[2023-01-07] MEDS: Propranolol HCL 10 MG TABLET PO ×2 (12:41→18:42)
[2023-01-07] MEDS: Gabapentin 400 MG CAPSULE 800 MG PO ×2 (14:26→18:41)
[2023-01-07] MEDS: Buprenorphine/Naloxone 4/1 mg FILM 1 FILM SUBLINGUAL (16:43)
[2023-01-07] MEDS: Buprenorphine/Naloxone 2/0.5mg FILM 1 FILM SUBLINGUAL (16:43)
[2023-01-07] MEDS: cloNIDine HCL 0.1 MG TABLET PO (18:03)
[2023-01-07] MEDS: LORazepam 0.5 MG TABLET PO (18:03)
[2023-01-07] MEDS: Prazosin HCL 1 MG CAPSULE 4 MG PO (18:41)
[2023-01-07] MEDS: Zolpidem Tartrate 5 MG TABLET PO (18:41)
[2023-01-07 19:18] VITALS: BP 140/95; PULSE 65
[2023-01-08 06:00] VITALS: BP 117/73; PULSE 71; RESP 14; TEMP 36.2; O2SAT 95
[2023-01-08] MEDS: Dextroamphetamine/Amphetamine XR 10 MG CAP.ER.24H 30 MG PO (08:21)
[2023-01-08] MEDS: Propranolol HCL 10 MG TABLET PO (08:21)
[2023-01-08] MEDS: Gabapentin 400 MG CAPSULE 800 MG PO ×3 (08:21→18:28)
[2023-01-08] MEDS: OXcarbazepine 150 MG TABLET PO ×2 (08:21→18:29)
[2023-01-08] MEDS: Venlafaxine HCl ER 75 MG CAP.ER.24H 225 MG PO (08:21)
[2023-01-08] MEDS: lisinopriL 5 MG TABLET PO (08:21)
[2023-01-08] MEDS: Buprenorphine/Naloxone 8/2 mg FILM 1 FILM SUBLINGUAL (08:22)
[2023-01-08] MEDS: Nicotine 21 MG PATCH.TD24 TRANSDERMA (08:22)
--- NOTE | 2023-01-08 09:55 | P.PNPSI_ITS ---
Subjective Subjective Date of Service: 01/08/23 Reason For Visit: Bipolar I D/O Current etc Interim History: Met with patient; discussed with team Patient reports that he is doing a little better. Sleeping better with Ambien. No SI. Still pretty anxious and agrees to increase Trileptal to b.i.d.. Wants to further taper off Suboxone and agrees to going down to 4 mg in the afternoon and then tomorrow switching the dose to once a day 12 mg in the morning. Also would like to increase propranolol. Patient shared more about his traumatic history and relationships with his family. Mental Status Exam Mental Status Exam Narrative: Pt is alert and oriented; behavior is cooperative and calm; patient is not in distress; casually dressed in clean cloths; good hygiene; mood is described as okay... Little better and affect congruent, more expressive; eye contact appropriate; Speech is normal rate, volume and prosody and not pressured; some psychomotor retardation present; thought process is organized and goal directed; Thought content is on treatment and feeling a little more hopeful; otherwise pertinent to relevant topics and without any delusional content, paranoid ideations or grandiosity; no SI; no HI. There is no evidence of perceptual disturbance and denies AVH. Patients insight and judgment are improved and fair Diagnostics Vital Signs (24Hr): Vital Signs - 24 hr 01/07/23 10:30 01/07/23 12:40 01/07/23 19:18 Temperature Pulse Rate 92 106 H 65 Respiratory Rate Blood Pressure 127/83 146/97 H 140/95 H Pulse Oximetry Oxygen Delivery Method 01/08/23 06:00 Temperature 97.1 F Pulse Rate 71 Respiratory Rate 14 Blood Pressure 117/73 Pulse Oximetry 95 Oxygen Delivery Method Room Air Labs 01/04/23 08:03 01/04/23 14:51 Labs: Laboratory Results - last 48 hr 01/07/23 01/07/23 08:22 08:22 Total Bilirubin 0.7 Direct Bilirubin 0.3 AST 191 H ALT 226 H Alkaline Phosphatase 65 Ammonia 41 Total Protein 6.7 Albumin 3.8 Medications Medications Current Medications Acetaminophen (Acetaminophen 325 Mg Tablet) 650 mg PO Q6H PRN PRN Reason: Headache/Pain Mild Scale (1-3) Al Hydroxide/Mg Hydroxide (Magnesium Hydrox/Alum Hydrox 30 Ml Oral.Susp) 30 ml PO Q6H PRN PRN Reason: Heartburn/Nausea Amphetamine/Dextroamphetamine (Dextroamphetamine/Amphetamine Xr 10 Mg Cap.Er.24h) 30 mg PO DAILY [facility] Last Admin: 01/08/23 08:21 Dose: 30 mg Buprenorphine/Naloxone (Buprenorphine/Naloxone 8/2 Mg Film) 1 film SUBLINGUAL DAILY [facility] Last Admin: 01/08/23 08:22 Dose: 1 film Buprenorphine/Naloxone (Buprenorphine/Naloxone 4/1 Mg Film) 1 film SUBLINGUAL DAILY@1700 [facility] Last Admin: 01/07/23 16:43 Dose: 1 film Buprenorphine/Naloxone (Buprenorphine/Naloxone 2/0.5mg Film) 1 film SUBLINGUAL DAILY@1700 [facility] Last Admin: 01/07/23 16:43 Dose: 1 film Clonidine HCl (Clonidine Hcl 0.1 Mg Tablet) 0.1 mg PO Q4H PRN; Protocol PRN Reason: SBP >150 Last Admin: 01/07/23 18:03 Dose: 0.1 mg Gabapentin (Gabapentin 400 Mg Capsule) 800 mg PO TID [facility] Last Admin: 01/08/23 08:21 Dose: 800 mg Lisinopril (Lisinopril 5 Mg Tablet) 5 mg PO DAILY [facility]; Protocol Last Admin: 01/08/23 08:21 Dose: 5 mg Lorazepam (Lorazepam 0.5 Mg Tablet) 0.5 mg PO DAILY PRN PRN Reason: severe anxiety/panic Last Admin: 01/07/23 18:03 Dose: 0.5 mg Magnesium Hydroxide (Milk Of Magnesia 30 Ml Oral.Susp) 30 ml PO DAILY PRN PRN Reason: Constipation Nicotine (Nicotine 21 Mg Patch.Td24) 21 mg TRANSDERMA DAILY [facility] Last Admin: 01/08/23 08:22 Dose: 21 mg Nicotine Polacrilex (Nicotine Polacrilex 2 Mg Gum) 4 mg BUCCAL Q2H PRN PRN Reason: Nicotine Cravings Last Admin: 01/07/23 18:03 Dose: 4 mg Oxcarbazepine (Oxcarbazepine 150 Mg Tablet) 150 mg PO DAILY [facility] Last Admin: 01/08/23 08:21 Dose: 150 mg Prazosin HCl (Prazosin Hcl 1 Mg Capsule) 4 mg PO BEDTIME [facility]; Protocol Last Admin: 01/07/23 18:41 Dose: 4 mg Propranolol HCl (Propranolol Hcl 10 Mg Tablet) 10 mg PO BID [facility]; Protocol Last Admin: 01/08/23 08:21 Dose: 10 mg Venlafaxine HCl (Venlafaxine Hcl Er 75 Mg Cap.Er.24h) 225 mg PO DAILY [facility] Last Admin: 01/08/23 08:21 Dose: 225 mg Zolpidem Tartrate (Zolpidem Tartrate 5 Mg Tablet) 5 mg PO BEDTIME PRN PRN Reason: Insomnia Last Admin: 01/07/23 18:41 Dose: 5 mg Allergies Allergies Allergy/AdvReac Type Severity Reaction Status Date / Time bupropion [From Wellbutrin] AdvReac Seizure Verified 01/05/23 16:47 Assessment & Plan Assessment & Plan (1) MDD (major depressive disorder), recurrent severe, without psychosis: Status: Acute Code(s): F33.2 - Major depressive disorder, recurrent severe without psychotic features (2) PTSD (post-traumatic stress disorder): Status: Acute Code(s): F43.10 - Post-traumatic stress disorder, unspecified (3) Hepatitis C: Status: Acute Code(s): B19.20 - Unspecified viral hepatitis C without hepatic coma (4) Opioid dependence on agonist therapy: Status: Acute Code(s): F11.20 - Opioid dependence, uncomplicated Plan Patient is a 32 yo male with history of depression, PTSD, alcohol use disorder in sustained remission, hep C, DMH involvement, who presents for SI and the face of psychosocial stressors including homelessness and being estranged from mom and brother. Patient denies any history of AVH or manic type episodes or behaviors; has not had consistent provider since he has been homeless and mostly gets medications from hospitalizations. Hospital course: 4/3 patient feels Depakote is helpful but not Abilify and agrees to discontinue; wants to remain on Effexor for now thinking it might be helpful. Also agrees to trying to use other PRNs instead of Ativan -reviewed labs from sending hospital: UDS negative; no LFTs done 4/ remains depressed and anxious; will stop Depakote as LFTs and ammonia elevated even when on only 500 mg; patient will try Effexor alone 4/5 some mild improvement with some decrease in depression, less SI; still not attending to ADLs but agrees with plan for behavioral activation and says will shower and attend group today. Continue treatment plan repeat LFTs/ammonia shows trending toward normal 4/6 mood improved some; pushing self to engage. given anxiety and wish for more ativan pt agrees to try Trileptal to see if it can help shrink anxiety. -wants to cut down on meds, including controlled substances; asking to taper and dc suboxone; agrees to start w/ slow taper and see how it goes. 01/08 continues to slowly improve Plan: CV Q 15 minute checks Repeat LFTs and a few days Discontinue Depakote: Causing increase LFTs ; patient has history of hep C Discontinued Abilify; patient says not helpful and likely used as augmentation; review of past meds also have perphenazine listed which patient says may have been for augmentation as well but he never took it One more day of Suboxone 8/2mg daily...and will LOWER suboxone to 4/1.5mg and then START Suboxone 12/3mg on 01/09/23 Increased to TRilptal 150mg BID for anxiety; will monitor LFTs Added Ambien 5mg Increased Propranol 30mg BID@0900,1700; pt reports been on 60mg BID before which was more helpful than clonidine Continue Effexor ER 225 mg Increase to gabapentin to 800 mg t.i.d.; patient was getting 800 t.i.d. which he says was for migraines and prescribed by pain management doctor in [place] Continue to Adderall ER 30 mg; no Vyvanse available Ativan 0.5 mg daily p.r.n. for panic Start Seroquel 50 mg q.h.s. p.r.n. for insomnia (tried to avoid Ambien) DC trazodone; not working well; Continue prazosin to 4 mg q.h.s.; was taking 6 mg Restarted lisinopril 5mg for blood pressure; DC cyproheptadine: pt says not helping and wants to reduce number of meds taking reduced clonidine prn to 0.1mg for hypoptension Patient educated on: diagnosis, medication risk/benefits, substance abuse and therapeutic strategies Informed Consent: understands Reason for contiued inpatient stay Substantial Risk for: stable for discharge Time Spent With Patient Time: Total time managing care of this patient today ____ minutes.
[2023-01-08] MEDS: Nicotine Polacrilex 2 MG GUM 4 MG BUCCAL ×2 (13:12→18:29)
[2023-01-08] MEDS: Propranolol HCL 10 MG TABLET 30 MG PO (16:01)
[2023-01-08] MEDS: Buprenorphine/Naloxone 4/1 mg FILM 1 FILM SUBLINGUAL (16:01)
[2023-01-08] MEDS: Prazosin HCL 1 MG CAPSULE 4 MG PO (18:28)
[2023-01-08 18:39] VITALS: BP 138/70; PULSE 77
[2023-01-08] MEDS: Ibuprofen 800 MG TABLET PO (18:39)
[2023-01-08] MEDS: LORazepam 0.5 MG TABLET PO (20:13)
[2023-01-08] MEDS: Zolpidem Tartrate 5 MG TABLET PO (20:13)
[2023-01-08] MEDS: cloNIDine HCL 0.1 MG TABLET PO (20:14)
[2023-01-09 07:50] VITALS: BP 116/73; PULSE 75; RESP 16; TEMP 36.2; O2SAT 95
[2023-01-09] MEDS: Venlafaxine HCl ER 75 MG CAP.ER.24H 225 MG PO (07:53)
[2023-01-09] MEDS: Propranolol HCL 10 MG TABLET 30 MG PO ×2 (07:53→17:16)
[2023-01-09] MEDS: OXcarbazepine 150 MG TABLET PO ×2 (07:53→20:23)
[2023-01-09] MEDS: Dextroamphetamine/Amphetamine XR 10 MG CAP.ER.24H 30 MG PO (07:53)
[2023-01-09] MEDS: Buprenorphine/Naloxone 12/3 mg FILM 1 FILM SUBLINGUAL (07:54)
[2023-01-09] MEDS: Gabapentin 400 MG CAPSULE 800 MG PO ×3 (07:54→20:23)
[2023-01-09] MEDS: Nicotine 21 MG PATCH.TD24 TRANSDERMA (07:54)
[2023-01-09] MEDS: lisinopriL 5 MG TABLET PO (07:54)
--- NOTE | 2023-01-09 11:04 | HO.PSYCHPN ---
Subjective Subjective Date of Service: 01/09/23 Reason For Visit: Bipolar I D/O Current etc Interim History: Met with patient; discussed with team Patient reports that he is continuing to do better. He slept well last night and feels that his anxiety is under better control. Feels that addition of Trileptal has been helpful. Patient has been attending groups and finds them helpful though somewhat redundant. Patient is talking about discharging feels he will be ready to go over early next week. He shared his plan and will stay in a hotel for while and may stay in a tent afterwards if need be. Denies any withdrawal symptoms from tapering of Suboxone Mental Status Exam Mental Status Exam Narrative: Pt is alert and oriented; behavior is cooperative and calm; patient is not in distress; casually dressed in clean cloths; good hygiene; mood is described as better and affect congruent, brighter, more expressive; eye contact appropriate; Speech is normal rate, volume and prosody and not pressured; no psychomotor retardation present; thought process is organized and goal directed; Thought content is on treatment and feeling more hopeful; otherwise pertinent to relevant topics and without any delusional content, paranoid ideations or grandiosity; no SI; no HI. There is no evidence of perceptual disturbance and denies AVH. Patients insight and judgment are improved and fair Diagnostics Vital Signs (24Hr): Vital Signs - 24 hr 01/08/23 18:39 01/09/23 07:50 Temperature 97.2 F Pulse Rate 77 75 Respiratory Rate 16 Blood Pressure 138/70 116/73 Pulse Oximetry 95 Oxygen Delivery Method Room Air Labs 01/04/23 08:03 01/04/23 14:51 Medications Medications Current Medications Al Hydroxide/Mg Hydroxide (Magnesium Hydrox/Alum Hydrox 30 Ml Oral.Susp) 30 ml PO Q6H PRN PRN Reason: Heartburn/Nausea Amphetamine/Dextroamphetamine (Dextroamphetamine/Amphetamine Xr 10 Mg Cap.Er.24h) 30 mg PO DAILY [facility] Last Admin: 01/09/23 07:53 Dose: 30 mg Buprenorphine/Naloxone (Buprenorphine/Naloxone 12/3 Mg Film) 1 film SUBLINGUAL DAILY [facility] Last Admin: 01/09/23 07:54 Dose: 1 film Clonidine HCl (Clonidine Hcl 0.1 Mg Tablet) 0.1 mg PO Q4H PRN; Protocol PRN Reason: SBP >150 Last Admin: 01/08/23 20:14 Dose: 0.1 mg Gabapentin (Gabapentin 400 Mg Capsule) 800 mg PO TID [facility] Last Admin: 01/09/23 07:54 Dose: 800 mg Ibuprofen (Ibuprofen 800 Mg Tablet) 800 mg PO TID PRN PRN Reason: Pain, Mild (Pain Scale 1-3) Last Admin: 01/08/23 18:39 Dose: 800 mg Lisinopril (Lisinopril 5 Mg Tablet) 5 mg PO DAILY [facility]; Protocol Last Admin: 01/09/23 07:54 Dose: 5 mg Lorazepam (Lorazepam 0.5 Mg Tablet) 0.5 mg PO DAILY PRN PRN Reason: severe anxiety/panic Last Admin: 01/08/23 20:13 Dose: 0.5 mg Magnesium Hydroxide (Milk Of Magnesia 30 Ml Oral.Susp) 30 ml PO DAILY PRN PRN Reason: Constipation Nicotine (Nicotine 21 Mg Patch.Td24) 21 mg TRANSDERMA DAILY [facility] Last Admin: 01/09/23 07:54 Dose: 21 mg Nicotine Polacrilex (Nicotine Polacrilex 2 Mg Gum) 4 mg BUCCAL Q2H PRN PRN Reason: Nicotine Cravings Last Admin: 01/08/23 18:29 Dose: 4 mg Oxcarbazepine (Oxcarbazepine 150 Mg Tablet) 150 mg PO BID [facility] Last Admin: 01/09/23 07:53 Dose: 150 mg Prazosin HCl (Prazosin Hcl 1 Mg Capsule) 4 mg PO BEDTIME [facility]; Protocol Last Admin: 01/08/23 18:28 Dose: 4 mg Propranolol HCl (Propranolol Hcl 10 Mg Tablet) 30 mg PO BID@0900,1700 [facility]; Protocol Last Admin: 01/09/23 07:53 Dose: 30 mg Venlafaxine HCl (Venlafaxine Hcl Er 75 Mg Cap.Er.24h) 225 mg PO DAILY [facility] Last Admin: 01/09/23 07:53 Dose: 225 mg Zolpidem Tartrate (Zolpidem Tartrate 5 Mg Tablet) 5 mg PO BEDTIME PRN PRN Reason: Insomnia Last Admin: 01/08/23 20:13 Dose: 5 mg Allergies Allergies Allergy/AdvReac Type Severity Reaction Status Date / Time bupropion [From Wellbutrin] AdvReac Seizure Verified 01/05/23 16:47 Assessment & Plan Assessment & Plan (1) MDD (major depressive disorder), recurrent severe, without psychosis: Status: Acute Code(s): F33.2 - Major depressive disorder, recurrent severe without psychotic features (2) PTSD (post-traumatic stress disorder): Status: Acute Code(s): F43.10 - Post-traumatic stress disorder, unspecified (3) Hepatitis C: Status: Acute Code(s): B19.20 - Unspecified viral hepatitis C without hepatic coma (4) Opioid dependence on agonist therapy: Status: Acute Code(s): F11.20 - Opioid dependence, uncomplicated Plan Patient is a 32 yo male with history of depression, PTSD, alcohol use disorder in sustained remission, hep C, DMH involvement, who presents for SI and the face of psychosocial stressors including homelessness and being estranged from mom and brother. Patient denies any history of AVH or manic type episodes or behaviors; has not had consistent provider since he has been homeless and mostly gets medications from hospitalizations. Hospital course: 4/ patient feels Depakote is helpful but not Abilify and agrees to discontinue; wants to remain on Effexor for now thinking it might be helpful. Also agrees to trying to use other PRNs instead of Ativan -reviewed labs from sending hospital: UDS negative; no LFTs done 4/ remains depressed and anxious; will stop Depakote as LFTs and ammonia elevated even when on only 500 mg; patient will try Effexor alone 4/5 some mild improvement with some decrease in depression, less SI; still not attending to ADLs but agrees with plan for behavioral activation and says will shower and attend group today. Continue treatment plan repeat LFTs/ammonia shows trending toward normal 4/6 mood improved some; pushing self to engage. given anxiety and wish for more ativan pt agrees to try Trileptal to see if it can help shrink anxiety. -wants to cut down on meds, including controlled substances; asking to taper and dc suboxone; agrees to start w/ slow taper and see how it goes. / continues to slowly improve Plan: CV Q 15 minute checks Repeat LFTs and a few days Discontinue Depakote: Causing increase LFTs ; patient has history of hep C Discontinued Abilify; patient says not helpful and likely used as augmentation; review of past meds also have perphenazine listed which patient says may have been for augmentation as well but he never took it STARTed Suboxone 12/3mg on 01/09/23 Continue TRilptal 150mg BID for anxiety; will monitor LFTs Added Ambien 5mg Increased Propranol 30mg BID@0900,1700; pt reports been on 60mg BID before which was more helpful than clonidine Continue Effexor ER 225 mg Increase to gabapentin to 800 mg t.i.d.; patient was getting 800 t.i.d. which he says was for migraines and prescribed by pain management doctor in [place] Continue to Adderall ER 30 mg; will give 10 mg IR in the afternoon no Vyvanse available Ativan 0.5 mg daily p.r.n. for panic DC trazodone; not working well; DC Seroquel, not that helpful Continue prazosin to 4 mg q.h.s.; was taking 6 mg Continue lisinopril 5mg for blood pressure; DC cyproheptadine: pt says not helping and wants to reduce number of meds taking reduced clonidine prn to 0.1mg for hypoptension Patient educated on: diagnosis, medication risk/benefits and therapeutic strategies Informed Consent: understands Reason for contiued inpatient stay Substantial Risk for: stable for discharge Time Spent With Patient Time: Total time managing care of this patient today ____ minutes.
[2023-01-09] MEDS: Amphetamine Mixed Salts 10 MG TABLET PO (14:13)
[2023-01-09 17:10] VITALS: BP 158/93; PULSE 76; TEMP 35.8; O2SAT 97
[2023-01-09] MEDS: Zolpidem Tartrate 5 MG TABLET PO (20:22)
[2023-01-09] MEDS: Prazosin HCL 1 MG CAPSULE 4 MG PO (20:22)
[2023-01-09] MEDS: LORazepam 0.5 MG TABLET PO (20:23)
[2023-01-09] MEDS: cloNIDine HCL 0.1 MG TABLET PO (20:23)
[2023-01-09] MEDS: Ibuprofen 800 MG TABLET PO (20:23)
[2023-01-09] MEDS: Nicotine Polacrilex 2 MG GUM 4 MG BUCCAL (20:28)
[2023-01-10 07:50] VITALS: BP 119/82; PULSE 72; RESP 16; TEMP 36.2; O2SAT 96
[2023-01-10] MEDS: Propranolol HCL 10 MG TABLET 30 MG PO ×2 (07:58→16:09)
[2023-01-10] MEDS: Dextroamphetamine/Amphetamine XR 10 MG CAP.ER.24H 30 MG PO (07:58)
[2023-01-10] MEDS: lisinopriL 5 MG TABLET PO (07:58)
[2023-01-10] MEDS: Venlafaxine HCl ER 75 MG CAP.ER.24H 225 MG PO (07:58)
[2023-01-10] MEDS: Nicotine 21 MG PATCH.TD24 TRANSDERMA (07:59)
[2023-01-10] MEDS: Gabapentin 400 MG CAPSULE 800 MG PO ×3 (07:59→20:29)
[2023-01-10] MEDS: OXcarbazepine 150 MG TABLET PO ×2 (07:59→20:29)
[2023-01-10] MEDS: Buprenorphine/Naloxone 12/3 mg FILM 1 FILM SUBLINGUAL (07:59)
[2023-01-10] MEDS: Nicotine Polacrilex 2 MG GUM 4 MG BUCCAL ×4 (10:03→20:31)
--- NOTE | 2023-01-10 11:09 | P.PNPSI_ITS ---
Subjective Subjective Date of Service: 01/10/23 Reason For Visit: Bipolar I D/O Current etc Interim History: Met with patient; discussed with team Patient reports that he is good and feels ready for discharge. He asks for discharge tomorrow. Patient shares his plan which involves meeting with his [facility] worker, getting some extra money from his friend, going to hotel hand looking for housing after that. Patient's friend is also getting him a membership to a gym where he can shower, shave and workout. Patient reports that he is future oriented and optimistic. He is happy to have gotten down on his Suboxone but would like to leave it there for now. Mental Status Exam Mental Status Exam Narrative: Pt is alert and oriented; behavior is cooperative and calm; patient is not in distress; casually dressed in clean cloths; good hygiene; mood is described as good and affect congruent, brighter, more expressive; eye contact appropriate; Speech is normal rate, volume and prosody and not pressured; no psychomotor retardation present; thought process is organized and goal directed; Thought content is on treatment and post discharge plans; otherwise pertinent to rele vant topics and without any delusional content, paranoid ideations or grandiosity; no SI; no HI. There is no evidence of perceptual disturbance and denies AVH. Patients insight and judgment are improved and fair Diagnostics Vital Signs (24Hr): Vital Signs - 24 hr 01/09/23 17:10 01/10/23 07:50 Temperature 96.5 F L 97.1 F Pulse Rate 76 72 Respiratory Rate 16 Blood Pressure 158/93 H 119/82 Pulse Oximetry 97 96 Oxygen Delivery Method Room Air Room Air Labs 01/04/23 08:03 01/04/23 14:51 Medications Medications Current Medications Al Hydroxide/Mg Hydroxide (Magnesium Hydrox/Alum Hydrox 30 Ml Oral.Susp) 30 ml PO Q6H PRN PRN Reason: Heartburn/Nausea Amphetamine/Dextroamphetamine (Dextroamphetamine/Amphetamine Xr 10 Mg Cap.Er.24h) 30 mg PO DAILY [facility] Last Admin: 01/10/23 07:58 Dose: 30 mg Amphetamine/Dextroamphetamine (Amphetamine Mixed Salts 10 Mg Tablet) 10 mg PO DAILY@1400 [facility] Last Admin: 01/09/23 14:13 Dose: 10 mg Buprenorphine/Naloxone (Buprenorphine/Naloxone 12/3 Mg Film) 1 film SUBLINGUAL DAILY [facility] Last Admin: 01/10/23 07:59 Dose: 1 film Clonidine HCl (Clonidine Hcl 0.1 Mg Tablet) 0.1 mg PO Q4H PRN; Protocol PRN Reason: SBP >150 Last Admin: 01/09/23 20:23 Dose: 0.1 mg Gabapentin (Gabapentin 400 Mg Capsule) 800 mg PO TID [facility] Last Admin: 01/10/23 07:59 Dose: 800 mg Ibuprofen (Ibuprofen 800 Mg Tablet) 800 mg PO TID PRN PRN Reason: Pain, Mild (Pain Scale 1-3) Last Admin: 01/09/23 20:23 Dose: 800 mg Lisinopril (Lisinopril 5 Mg Tablet) 5 mg PO DAILY [facility]; Protocol Last Admin: 01/10/23 07:58 Dose: 5 mg Lorazepam (Lorazepam 0.5 Mg Tablet) 0.5 mg PO DAILY PRN PRN Reason: severe anxiety/panic Last Admin: 01/09/23 20:23 Dose: 0.5 mg Magnesium Hydroxide (Milk Of Magnesia 30 Ml Oral.Susp) 30 ml PO DAILY PRN PRN Reason: Constipation Nicotine (Nicotine 21 Mg Patch.Td24) 21 mg TRANSDERMA DAILY [facility] Last Admin: 01/10/23 07:59 Dose: 21 mg Nicotine Polacrilex (Nicotine Polacrilex 2 Mg Gum) 4 mg BUCCAL Q2H PRN PRN Reason: Nicotine Cravings Last Admin: 01/10/23 10:03 Dose: 4 mg Oxcarbazepine (Oxcarbazepine 150 Mg Tablet) 150 mg PO BID [facility] Last Admin: 01/10/23 07:59 Dose: 150 mg Prazosin HCl (Prazosin Hcl 1 Mg Capsule) 4 mg PO BEDTIME [facility]; Protocol Last Admin: 01/09/23 20:22 Dose: 4 mg Propranolol HCl (Propranolol Hcl 10 Mg Tablet) 30 mg PO BID@0900,1700 [facility]; Protocol Last Admin: 01/10/23 07:58 Dose: 30 mg Venlafaxine HCl (Venlafaxine Hcl Er 75 Mg Cap.Er.24h) 225 mg PO DAILY [facility] Last Admin: 01/10/23 07:58 Dose: 225 mg Zolpidem Tartrate (Zolpidem Tartrate 5 Mg Tablet) 5 mg PO BEDTIME PRN PRN Reason: Insomnia Last Admin: 01/09/23 20:22 Dose: 5 mg Allergies Allergies Allergy/AdvReac Type Severity Reaction Status Date / Time bupropion [From Wellbutrin] AdvReac Seizure Verified 01/05/23 16:47 Assessment & Plan Assessment & Plan (1) MDD (major depressive disorder), recurrent severe, without psychosis: Status: Acute Code(s): F33.2 - Major depressive disorder, recurrent severe without psychotic features (2) PTSD (post-traumatic stress disorder): Status: Acute Code(s): F43.10 - Post-traumatic stress disorder, unspecified (3) Hepatitis C: Status: Acute Code(s): B19.20 - Unspecified viral hepatitis C without hepatic coma (4) Opioid dependence on agonist therapy: Status: Acute Code(s): F11.20 - Opioid dependence, uncomplicated Plan Patient is a 32 yo male with history of depression, PTSD, alcohol use disorder in sustained remission, hep C, DMH involvement, who presents for SI and the face of psychosocial stressors including homelessness and being estranged from mom and brother. Patient denies any history of AVH or manic type episodes or behaviors; has not had consistent provider since he has been homeless and mostly gets medications from hospitalizations. Hospital course: 4/ patient feels Depakote is helpful but not Abilify and agrees to discontinue; wants to remain on Effexor for now thinking it might be helpful. Also agrees to trying to use other PRNs instead of Ativan -reviewed labs from sending hospital: UDS negative; no LFTs done 4/ remains depressed and anxious; will stop Depakote as LFTs and ammonia elevated even when on only 500 mg; patient will try Effexor alone 4/5 some mild improvement with some decrease in depression, less SI; still not attending to ADLs but agrees with plan for behavioral activation and says will shower and attend group today. Continue treatment plan repeat LFTs/ammonia shows trending toward normal 4/6 mood improved some; pushing self to engage. given anxiety and wish for more ativan pt agrees to try Trileptal to see if it can help shrink anxiety. -wants to cut down on meds, including controlled substances; asking to taper and dc suboxone; agrees to start w/ slow taper and see how it goes. 01/08 continues to slowly improve 01/10 patient in good mood, feeling stable and ready for discharge. Patient is future oriented and optimistic. He is with noticeably brighter affect. Has post discharge plans which he laid out. Patient is not in imminent risk for minda m to self or others and request for discharge honored Plan: CV Q 15 minute checks Repeat LFTs and a few days Discontinue Depakote: Causing increase LFTs ; patient has history of hep C Discontinued Abilify; patient says not helpful and likely used as augmentation; review of past meds also have perphenazine listed which patient says may have been for augmentation as well but he never took it Continue Suboxone 12/3mg on 01/09/23 Continue TRilptal 150mg BID for anxiety; will monitor LFTs Added Ambien 5mg Increased Propranol 30mg BID@0900,1700; pt reports been on 60mg BID before which was more helpful than clonidine Continue Effexor ER 225 mg Increase to gabapentin to 800 mg t.i.d.; patient was getting 800 t.i.d. which he says was for migraines and prescribed by pain management doctor in [place] Continue to Adderall ER 30 mg; will give 10 mg IR in the afternoon no Vyvanse available Ativan 0.5 mg daily p.r.n. for panic DC trazodone; not working well; DC Seroquel, not that helpful Continue prazosin to 4 mg q.h.s.; was taking 6 mg Continue lisinopril 5mg for blood pressure; DC cyproheptadine: pt says not helping and wants to reduce number of meds taking reduced clonidine prn to 0.1mg for hypoptension Patient educated on: diagnosis, medication risk/benefits, substance abuse and therapeutic strategies Informed Consent: understands Reason for contiued inpatient stay Substantial Risk for: stable for discharge Time Spent With Patient Time: Total time managing care of this patient today ____ minutes.
[2023-01-10] MEDS: Amphetamine Mixed Salts 10 MG TABLET PO (13:01)
[2023-01-10] MEDS: cloNIDine HCL 0.1 MG TABLET PO (16:09)
[2023-01-10] MEDS: LORazepam 0.5 MG TABLET PO (16:12)
[2023-01-10 16:54] VITALS: BP 132/84; PULSE 68; RESP 20; TEMP 35.5; O2SAT 97
[2023-01-10] MEDS: Zolpidem Tartrate 5 MG TABLET PO (20:29)
[2023-01-10] MEDS: Prazosin HCL 1 MG CAPSULE 4 MG PO (20:30)
[2023-01-11] MEDS: LORazepam 0.5 MG TABLET PO (00:11)
[2023-01-11 07:56] VITALS: BP 110/84; PULSE 72; RESP 16; TEMP 36.2; O2SAT 95
[2023-01-11] MEDS: Propranolol HCL 10 MG TABLET 30 MG PO (08:13)
[2023-01-11] MEDS: Nicotine 21 MG PATCH.TD24 TRANSDERMA (08:13)
[2023-01-11] MEDS: lisinopriL 5 MG TABLET PO (08:13)
[2023-01-11] MEDS: Venlafaxine HCl ER 75 MG CAP.ER.24H 225 MG PO (08:13)
[2023-01-11] MEDS: OXcarbazepine 150 MG TABLET PO (08:13)
[2023-01-11] MEDS: Gabapentin 400 MG CAPSULE 800 MG PO (08:13)
[2023-01-11] MEDS: Buprenorphine/Naloxone 12/3 mg FILM 1 FILM SUBLINGUAL (08:13)
[2023-01-11] MEDS: Dextroamphetamine/Amphetamine XR 10 MG CAP.ER.24H 30 MG PO (08:13)
--- NOTE | 2023-01-11 09:29 | P.DS_ITS ---
DS: Providers Provider Date of Service: 01/11/23 Date of admission: 01/02/23 22:01 Date of discharge: 01/11/23 Primary care physician: Unknown Physician Attending physician on admission: Hossein Lucio Consults: 01/02/23 22:57 Consult to Hospitalist Routine Comment: Consulting Provider: Hospitalist Reason For Exam: direct admit from another facility Attending physician on discharge: Hossein Lucio DS: Diagnosis Discharge Diagnosis (1) Bipolar disorder: Status: Deleted DS: Medications Discharge Medications Home Medications: Previous Rx's Medication Instructions Recorded buprenorphine 12 mg-naloxone 3 mg 1 film sublingual DAILY 14 days 01/11/23 sublingual film #14 ea clonidine HCl 0.1 mg tablet 0.1 mg PO Q4H PRN anxiety 30 days 01/11/23 #60 tabs gabapentin 800 mg tablet 800 mg PO TID 30 days #90 tabs 01/11/23 lisinopril 5 mg tablet 5 mg PO DAILY 30 days #30 tabs 01/11/23 lorazepam 0.5 mg tablet 0.5 mg PO DAILY PRN severe 01/11/23 anxiety/panic 30 days #30 tabs nicotine (polacrilex) 2 mg gum 4 mg buccal Q2H PRN Nicotine 01/11/23 Cravings 30 days #100 ea nicotine 21 mg/24 hr daily 21 mg transdermal DAILY 28 days 01/11/23 transdermal patch #28 ea oxcarbazepine 150 mg tablet 150 mg PO BID 30 days #60 tabs 01/11/23 prazosin 2 mg capsule 4 mg PO BEDTIME 30 days #60 caps 01/11/23 propranolol 20 mg tablet 30 mg PO BID@0900,1700 30 days #90 01/11/23 tabs venlafaxine 225 mg tablet,extended 225 mg PO DAILY 30 days #30 tabs 01/11/23 release 24 hr zolpidem 5 mg tablet 5 mg PO BEDTIME PRN Insomnia 30 01/11/23 days #30 tabs Mental Status Exam Mental Status Exam Narrative: Pt is alert and oriented; behavior is cooperative and calm; patient is not in distress; casually dressed in clean cloths; good hygiene; mood is described as good and affect congruent, brighter, more expressive; eye contact appropriate; Speech is normal rate, volume and prosody and not pressured; no psychomotor retardation present; thought process is organized and goal directed; Thought content is on treatment and post discharge plans; otherwise pertinent to relevant topics and without any delusional content, paranoid ideations or grandiosity; no SI; no HI. There is no evidence of perceptual disturbance and denies AVH. Patients insight and judgment are improved and fair Data Data Completed and Pending Completed studies during hospitalization [Text1]: 01/04/23 01/04/23 01/04/23 14:51 14:51 14:51 Sodium 139 Potassium 4.7 Chloride 102 Carbon Dioxide 26 Anion Gap 16 BUN 17 H Creatinine 0.81 Estim Creat Clear Calc TNP Estimated GFR > 60 Random Glucose 120 H Calcium 9.5 Total Bilirubin 0.9 Direct Bilirubin AST 275 H ALT 248 H Alkaline Phosphatase 76 Ammonia 69 H Total Protein 7.3 Albumin 4.0 Valproic Acid 52.4 01/07/23 01/07/23 08:22 08:22 Sodium Potassium Chloride Carbon Dioxide Anion Gap BUN Creatinine Estim Creat Clear Calc Estimated GFR Random Glucose Calcium Total Bilirubin 0.7 Direct Bilirubin 0.3 AST 191 H ALT 226 H Alkaline Phosphatase 65 Ammonia 41 Total Protein 6.7 Albumin 3.8 Valproic Acid DS: Summary Hospital Course Hospital Course: Patient is a 32 yo male with history of depression, PTSD, alcohol use disorder in sustained remission, hep C, DMH involvement, who presents for SI and the face of psychosocial stressors including homelessness and being estranged from mom and brother. Patient denies any history of AVH or manic type episodes or behaviors; has not had consistent provider since he has been homeless and mostly gets medications from hospitalizations. Hospital course: On admission patient was depressed; patient had some intermittent SI however it was passive and soon fully resolved. Bipolar disorder ruled out and Abilify was discontinued. Patient was continued on Effexor and Depakote however LFTs increased and given history of hepatitis C, Depakote was discontinued. Patient was started on Adderall as he was prescribed Vyvanse as an outpatient. Patient's depression began to maci however he remained anxious; patient was hoping for Ativan to be increased however he accepted reasoning to avoid this medication further (other than panic) and was started on Trileptal as well as p ropranolol both which proved helpful. Patient's mood and anxiety significantly improved; patient remained in good behavioral and impulse control throughout his time in the unit and was appropriate with peers and staff; he was engaged in treatment and attended groups. Patient wanted to taper off Suboxone, ultimately wanting to be rid of controlled substances and his dose was affectively lowered. Patient remained in good mood, with bright affect and he felt ready for discharge. He was future oriented and optimistic. Patient was not in imminent risk for harm to self or others and his request for discharge honored. Time spent discussing smoking cessation with patient: 3 to 10 minutes Status at Discharge Functional status at discharge: independent ambulation Overall status at discharge: patient is back to baseline Time Spent with Patient Time attestation: Total time managing care of this patient today ____ minutes. Time spent: Greater than 30 minutes Discharge Plan Discharge Anticipated Discharge Date/Time: 01/11/23 11:30 Patient Disposition: [facility] Discharge Diagnosis: MDD, recurrent, Severe w/out psychosis, in full remission Referrals: Physician,Seven J [Primary Care Provider] - 1 Week (pt refused to sign release for PCP. reports a follow-up appt was scheduled by his [facility] worker. ) Discharge Medications: New nicotine 21 mg/24 hr Patch 24 Hour 21 mg transdermal DAILY 28 Days Qty: 28 0RF nicotine (polacrilex) 2 mg Gum 4 mg buccal Q2H PRN (Reason: Nicotine Cravings) 30 Days Qty: 100 0RF clonidine HCl 0.1 mg Tablet 0.1 mg PO Q4H PRN (Reason: anxiety) 30 Days Qty: 60 1RF Protocol: Hold for SBP< HOLD for SBP < : 90 lisinopril 5 mg Tablet 5 mg PO DAILY 30 Days Qty: 30 1RF Protocol: Hold for SBP< HOLD for SBP < : 90 prazosin 2 mg capsule 4 mg PO BEDTIME 30 Days Qty: 60 1RF propranolol 20 mg tablet 30 mg PO BID@0900,1700 30 Days Qty: 90 1RF gabapentin 800 mg tablet 800 mg PO TID 30 Days Qty: 90 1RF oxcarbazepine 150 mg Tablet 150 mg PO BID 30 Days Qty: 60 1RF lorazepam 0.5 mg Tablet 0.5 mg PO DAILY PRN (Reason: severe anxiety/panic) 30 Days Qty: 30 0RF venlafaxine 225 mg tablet extended release 24hr 225 mg PO DAILY 30 Days Qty: 30 1RF zolpidem 5 mg Tablet 5 mg PO BEDTIME PRN (Reason: Insomnia) 30 Days Qty: 30 0RF buprenorphine-naloxone 12-3 mg Film 1 film sublingual DAILY 14 Days Qty: 14 0RF Vyvanse 50 mg capsule 50 mg PO DAILY 30 Days Qty: 30 0RF Rx Instructions: Partial Fill upon patient request. Discharge Orders: Discharge Order (Routine); Ordered 01/11/23 Ordered By: Hossein Lucio Diet: Regular diet Activity on Discharge: As tolerated Stand Alone Forms: Patient Portal Discharge page, Community Support Care Plan Goals: Maintain mood and safe behaviors Take medications as prescribed Continue to pursue sobriety Practice coping skills Continue with outpatient providers and reach out to them as needed Health Concerns: Mood stability and behaviors Migraines Fibromyalgia Plan of Treatment: Follow up with your PCP, psychiatric provider and other outpatient providers regarding above concerns Take medications as prescribed Assessment: Risk assessment at time of discharge:? Patient was interviewed prior to discharge and found to be fully oriented and without any SI or HI. Patient has insight and demonstrates good judgment in terms of wanting to pursue treatment. Patient is not in imminent risk of harm to self or others and has a safety plan that includes presenting to the closest ER or calling 911 if feeling unsafe.? Patient has been observed closely by nursing and unit staff throughout admission; patient has not engaged in any behaviors that suggest dangerousness to self or others and has demonstrated appropriate behaviors and impulse control Discharge Date/Time: 01/11/23 11:15
== END 2023-01-11 11:15 | disposition home or self-care (01) | DRG 751 ==
PROVIDERS: Clinical Nurse Specialist Psychiatric/Mental Health; Admitting Provider Psychiatry & Neurology Psychiatry; Visit Provider Psychiatry & Neurology Psychiatry
DX: F33.2 Major depressive disorder, recurrent severe without psychotic features (principal); R45.851 Suicidal ideations; B19.20 Unspecified viral hepatitis C without hepatic coma; F11.20 Opioid dependence, uncomplicated; I10 Essential (primary) hypertension; F43.10 Post-traumatic stress disorder, unspecified; F10.10 Alcohol abuse, uncomplicated; F17.210 Nicotine dependence, cigarettes, uncomplicated; Z59.02 Unsheltered homelessness; Z71.6 Tobacco abuse counseling; Z79.899 Other long term (current) drug therapy
CPT/HCPCS: 36415; 80053; 80076; 80164; 82140; 85025; 93005